=== PATIENT | male | born 1945 | race Caucasian/White ===

== ENCOUNTER 2018-06-19 00:40 | Emergency (ER) | payer MEDICARE ==
--- NOTE | 2018-06-19 00:58 | ER Document Report ---
ED Medical Screen (RME) - General Chief Complaint: High Blood Pressure Stated Complaint: BLOOD PRESSURE PROBLEM Time Seen by Provider: 06/19/18 00:55 Mode of Arrival: Ambulatory Information source: Patient Notes: 72-year-old male presented to ED for concern of high blood pressure. He states he was seen at home by EMS and they did his blood pressure and vital signs and his EKG. He refused to have his vital signs were an EKG done in the emergency room he stated he did not want a big bill when he just had all that done. He states that [facility] is a good hospital but he does not want a big bill for his elevated blood pressure. He states he feels fine just a little wobbly. I discussed with him at length that it was really bad in his best interest for me to examine him and get his vital signs. After repeated discussions concerning his symptoms and need to be examined the patient continued to refuse to be examined he stated he will follow-up with his doctor tomorrow. He states he did not want vital signs he did not want his height and weight he did not 1 EKG and he did not want lab work. Patient refused to let me examine him. TRAVEL OUTSIDE OF THE [place] IN LAST 30 DAYS: No - Related Data Allergies/Adverse Reactions: peanut Allergy (Verified 06/19/18 00:47) Past Medical History - General Cannot obtain history due to: Other - Patient refused to answer questions concerning his history. He states he has high blood pressure he is been seen in this hospital and saved in the past but he did not want to be examined tonight Doctor's Discharge - Discharge Clinical Impression: High blood pressure Qualifiers: Hypertension type: unspecified Qualified Code(s): I10 - Essential (primary) hypertension Disposition: AGAINST MEDICAL ADVICE Referrals: NAJMA COLE MD [Primary Care Provider] - Follow up as needed
== END 2018-06-19 00:55 | disposition left against medical advice (07) ==
LOC: ER 00:40
DX: I10 Essential (primary) hypertension (principal); Z53.29 Procedure and treatment not carried out because of patient's decision for other reasons; Z53.21 Procedure and treatment not carried out due to patient leaving prior to being seen by health care provider
CPT/HCPCS: 99281

== ENCOUNTER 2018-09-19 06:34 | Emergency (ER) | payer MEDICARE, OTHER ==
[2018-09-19] MEDS ORDERED: ONDANSETRON HCL INJ/PF 4 MG/2 ML SDV IV ONE (06:54)
[2018-09-19] MEDS ORDERED: MORPHINE SULFATE 10 MG/ML INJ IV ONE (06:54)
--- NOTE | 2018-09-19 06:55 | ER Document Report ---
ED General - General Chief Complaint: Flank Pain Stated Complaint: FLANK PAIN Time Seen by Provider: 09/19/18 06:40 Mode of Arrival: Ambulatory Information source: Patient, Relative, [facility] Records Notes: 72-year-old male with hypertension presents with complaint of left flank pain and periumbilical abdominal pain. Patient states that left flank pain started 2 weeks prior to arrival with worsening of pain over the last 2 days. He describes it as sharp, intermittent and relieved with remaining still and worsened with movement. Patient also has developed some centralized abdominal pain that he describes as "nagging". Patient has had associated nausea without vomiting. He denies any fever, chills, chest pain, shortness of breath, diarrhea, constipation, dysuria, hematuria diaphoresis, lightheadedness, recent injury. Patient does state that he lifts weights to stay in shape and has had pain with bending forward.. Patient denies prior history of kidney stone. He does have a surgical history of appendectomy. Patient denies any sick contacts, TRAVEL OUTSIDE OF THE [place] IN LAST 30 DAYS: No - HPI Onset: Other Onset/Duration: Intermittent Quality of pain: Stabbing Severity: Severe Pain Level: 5 Associated symptoms: Nausea. denies: Chest pain, Productive cough, Diarrhea, Earache, Fever, Headache, Vomiting, Shortness of breath, Sweating Exacerbated by: Movement Relieved by: Remaining still Similar symptoms previously: Yes Recently seen / treated by doctor: No - Related Data Allergies/Adverse Reactions: peanut Allergy (Verified 06/19/18 00:47) Past Medical History - General Information source: Patient, Relative, [facility] Records - Social History Smoking Status: Former Smoker Frequency of alcohol use: None Drug Abuse: None Lives with: Spouse/Significant other Family History: Reviewed & Not Pertinent Patient has suicidal ideation: No Patient has homicidal ideation: No - Past Medical History Cardiac Medical History: Reports: Hx Hypertension Past Surgical History: Reports: Hx Appendectomy Review of Systems - Review of Systems Notes: REVIEW OF SYSTEMS: CONSTITUTIONAL : Denies fever, chills, or sweats. Denies recent illness. Denies weight loss, recent hospitalizations. EENT: Denies visual changes, eye pain. Denies sore throat, oral lesions, dif ficulty swallowing. CARDIOVASCULAR: Denies chest pain. Denies palpitations. Denies lower extremity edema. RESPIRATORY: Denies cough. Denies shortness of breath, wheezing. GASTROINTESTINAL: Denies abdominal distention. Denies vomiting, or diarrhea. Denies blood in vomitus, stools, or per rectum. Denies black, tarry stools. Denies constipation. GENITOURINARY: Denies difficulty urinating, painful urination, frequency, blood in urine, testicular pain or penile discharge. MUSCULOSKELETAL: Denies neck pain or stiffness. Denies joint pain or swelling. SKIN: Denies rash, lesions or sores. HEMATOLOGIC : Denies easy bruising or bleeding. LYMPHATIC: Denies swollen glands. NEUROLOGICAL: Denies confusion or altered mental status. Denies loss of consciousness. Denies dizziness or lightheadedness. Denies headache. Denies weakness or paralysis. Denies problems difficulty with ambulation, slurred speech. Denies sensory loss, numbness, or tingling. Denies seizures. PSYCHIATRIC: Denies anxiety or stress. Denies depression, suicidal ideation, or PHYSICAL EXAMINATION: GENERAL: Well-appearing, well-nourished and in no acute distress. HEAD: Atraumatic, normocephalic. EYES: Pupils equal round and reactive to light, extraocular movements intact, sclera anicteric, conjunctiva are normal. ENT: Nares patent, oropharynx clear without exudates. Moist mucous membranes. NECK: Normal range of motion, supple without lymphadenopathy LUNGS: Breath sounds clear to auscultation bilaterally and equal. No wheezes rales or rhonchi. HEART: Regular rate and rhythm without murmurs ABDOMEN: Periumbilical abdominal tenderness no guarding, no rebound. No masses appreciated. No pulsatile mass. No CVA tenderness Musculoskeletal: Normal range of motion, no pitting or edema. No cyanosis. Left-sided paraspinal tenderness of the lumbar spine at the level of L4, L5. NEUROLOGICAL: Cranial nerves grossly intact. Normal speech, normal gait. Normal sensory, motor exams PSYCH: Normal mood, normal affect. SKIN: Warm, Dry, normal turgor, no rashes or lesions noted. Physical Exam - Vital signs Vitals: Pulse Resp BP Pulse Ox 56 L 16 174/68 H 99 09/19/18 06:34 09/19/18 06:34 09/19/18 06:34 09/19/18 06:34 Interpretation: Hypertensive. No: Hypoxic, Febrile Course - Re-evaluation Re-evalutation: Temp Pulse Resp BP Pulse Ox 56 L 16 174/68 H 99 09/19/18 06:34 09/19/18 06:34 09/19/18 06:34 09/19/18 06:34 Laboratory 09/19/18 09/19/18 09/19/18 07:04 07:04 07:04 WBC 8.3 RBC 4.94 Hgb 15.3 Hct 44.5 MCV 90 MCH 31.1 MCHC 34.5 RDW 13.4 Plt Count 305 Seg Neutrophils % 55.5 Lymphocytes % 29.9 Monocytes % 9.6 Eosinophils % 4.5 Basophils % 0.5 Absolute Neutrophils 4.6 Absolute Lymphocytes 2.5 Absolute Monocytes 0.8 Absolute Eosinophils 0.4 Absolute Basophils 0.0 Sodium 139.5 Potassium 4.4 Chloride 101 Carbon Dioxide 28 Anion Gap 11 BUN 19 Creatinine 0.98 Est GFR ( Amer) > 60 Est GFR (Non-Af Amer) > 60 Glucose 96 Calcium 10.2 Total Bilirubin 0.5 Direct Bilirubin 0.1 Neonat Total Bilirubin Not Reportable Neonat Direct Bilirubin Not Reportable Neonat Indirect Bili Not Reportable AST 21 ALT 26 Alkaline Phosphatase 64 Troponin I < 0.012 Total Protein 8.3 H Albumin 5.1 H Lipase 41.9 Urine Color Urine Appearance Urine pH Ur Specific [place] Urine Protein Urine Glucose (UA) Urine Ketones Urine Blood Urine Nitrite Urine Bilirubin Urine Urobilinogen Ur Leukocyte Esterase Urine WBC (Auto) Urine RBC (Auto) Urine Mucus (Auto) Urine Ascorbic Acid 09/19/18 07:50 WBC RBC Hgb Hct MCV MCH MCHC RDW Plt Count Seg Neutrophils % Lymphocytes % Monocytes % Eosinophils % Basophils % Absolute Neutrophils Absolute Lymphocytes Absolute Monocytes Absolute Eosinophils Absolute Basophils Sodium Potassium Chloride Carbon Dioxide Anion Gap BUN Creatinine Est GFR ( Amer) Est GFR (Non-Af Amer) Glucose Calcium Total Bilirubin Direct Bilirubin Neonat Total Bilirubin Neonat Direct Bilirubin Neonat Indirect Bili AST ALT Alkaline Phosphatase Troponin I Total Protein Albumin Lipase Urine Color STRAW Urine Appearance CLEAR Urine pH 7.0 Ur Specific [place] 1.006 Urine Protein NEGATIVE Urine Glucose (UA) NEGATIVE Urine Ketones NEGATIVE Urine Blood NEGATIVE Urine Nitrite NEGATIVE Urine Bilirubin NEGATIVE Urine Urobilinogen NEGATIVE Ur Leukocyte Esterase NEGATIVE Urine WBC (Auto) 1 Urine RBC (Auto) 0 Urine Mucus (Auto) RARE Urine Ascorbic Acid NEGATIVE Abdomen/Pelvis CTA 09/19/18 00:00 IMPRESSION: 1. Negative examination for abdominal aortic aneurysm, dissection, or other vascular pathology. 2. There is mild fat stranding in the vicinity of the pylorus and duodenum, of uncertain etiology. Nonspecific infectious or inflammatory enteritis may have this appearance as well as groove pancreatitis. The pancreatic parenchyma is normal in appearance. Chest X-Ray 09/19/18 06:52 IMPRESSION: No acute cardiopulmonary findings. 09/19/18 07:16 72-year-old male presents with left-sided flank and abdominal pain. Patient states flank pain started 2 weeks ago with worsening of pain over the last 2 days. Abdominal pain also started 2 days ago. Patient has had associated nausea without vomiting. Does have a medical history of hypertension for which she is on medication for. Upon arrival vitals were reviewed and patient is hypertensive, minimally bradycardic at a rate of 56, afebrile. Patient does not appear toxic or dehydrated. He is in no acute distress. Patient's physical exam significant for some periumbilical abdominal pain and left paraspinal tenderness of the lumbar spine. No midline tenderness. No CVA tenderness. Bedside ultrasound was performed and showed a normal size aorta and no evidence of left-sided hydronephrosis. 09/19/18 08:29 Patient declining pain medication at this time. CBC is without leukocytosis or anemia. CMP unremarkable, urinalysis without evidence of blood or infection. Troponin within normal limits. EKG obtained showed normal sinus rhythm at a rate of 67 with a QRS of 96 and a QTC of 414. 09/19/18 09:19 Patient reevaluated and is resting comfortably. Still complaining of low back pain but still declining pain medication. CT of the abdomen and pelvis significant for fat stranding around the duodenum consistent with inflammatory versus infectious enteritis. Patient declining antibiotics at this time. We have agreed that I will write him for antibiotics, printout his CT report and he will be reevaluated by his primary care physician and 48 hours. 09/19/18 14:14 Prior to discharge patient is walking without discomfort. He even throws his leg up onto the nursing counter to show his flexibility. CT is without evidence of aneurysm, dissection or any other vascular pathology. Patient was discharged home with copies of his imaging and lab work. Patient was evaluated and treated as appropriate for the patient's presenting symptoms and complaint, with consideration of any critical or life threatening conditions that may be associated with their obtained history and exam as noted above. All results were discussed with patient and his . Patient provided the opportunity to ask questions, and express concerns. Patient was educated on treatments based on their presumed diagnosis as noted above. At this time we will discharge the patient with return precautions and follow-up recommendations. Verbal discharge instructions given a the bedside. Medication warnings reviewed. Patient is in agreement with this plan and has verbalized understanding of return precautions. After careful consideration I feel that that patient can be safely discharged from the emergency department, they were advised to followup with a primary care physician in 2-3 days. Dictation on this chart was performed using voice recognition software and may result in unintended grammatical, spelling, syntax or errors. - Vital Signs Vital signs: Temp Pulse Resp BP Pulse Ox 97.8 F 64 19 140/73 H 99 09/19/18 09:34 09/19/18 09:34 09/19/18 09:34 09/19/18 09:34 09/19/18 09:34 - Laboratory Result Diagrams: 09/19/18 07:04 09/19/18 07:04 Laboratory results interpreted by me: 09/19/18 07:04 Total Protein 8.3 H Albumin 5.1 H - Diagnostic Test Radiology reviewed: Pending, Image reviewed, Reports reviewed - EKG Interpretation by Me EKG shows normal: Sinus rhythm Rate: Normal Rhythm: NSR When compared to previous EKG there are: Previous EKG unavailable - QRS 96, QTc 414 Procedures - Ultrasound/Bedside Ultrasound/Bedside Time completed: 07:16 - Bedside ultrasound of the aorta and kidneys were performed. No evidence of AAA with the greatest measurement 1.83. No evidence of left-sided hydronephrosis. Images attached to chart. Ultrasound: Normal Discharge - Discharge Clinical Impression: Enteritis Low back pain Qualifiers: Chronicity: acute Back pain laterality: left Sciatica presence: without sciatica Qualified Code(s): M54.5 - Low back pain Hypertension Qualifiers: Hypertension type: unspecified Qualified Code(s): I10 - Essential (primary) hypertension Abdominal pain Qualifiers: Abdominal location: periumbilical Qualified Code(s): R10.33 - Periumbilical p ain Condition: Good Disposition: HOME, SELF-CARE Instructions: Abdominal Pain ([facility]), Antinausea Medication ([facility]), Low Back Pain ([facility]), Toradol Injection ([facility]) Additional Instructions: Your CAT scan today showed evidence of inflammation of your bowel. This could be infectious versus inflammatory. Please take your CAT scan report to your primary care physician. Follow up with your [id number] hours for further care or return to the ED IMMEDIATELY if symptoms worsen or you have any concerns. If you cannot afford to follow up with your primary care physician a list of low cost clinics have been provided at the end of your discharge papers as well. Most prescribed medications have multiple side effects. The safest thing to do is when filling your prescription speak to your pharmacist regarding possible interactions with your normal home medications and over the counter medications such as Ibuprofen, Tylenol, Benadryl. If you experience any symptoms that cause you discomfort or concern you should discontinue the medication immediately and return to the emergency room or call your primary care physician. Prescriptions: Metronidazole [Flagyl 500 mg Tablet] 500 mg PO Q6H #28 tablet Ondansetron [Zofran Odt 4 mg Tablet] 1 tab PO Q4H PRN #15 tab.rapdis PRN Reason: For Nausea/Vomiting Forms: Elevated Blood Pressure Referrals: NAJMA COLE MD [ACTIVE STAFF] - Follow up as needed
[2018-09-19 07:26] LABS: ABSOLUTE EOSINOPHILS # (AUTO) 0.4 10^3/uL (0.0-0.6); ABSOLUTE LYMPHOCYTES (AUTO) 2.5 10^3/uL (0.5-4.7); ABSOLUTE MONOCYTES (AUTO) 0.8 10^3/uL (0.1-1.4); ABSOLUTE NEUT (AUTO) 4.6 10^3/uL (1.7-8.2); BASOPHILS % (AUTO) 0.5 % (0-2); EOSINOPHILS % (AUTO) 4.5 % (0-6); HEMATOCRIT 44.5 % (37.9-51.0); HEMOGLOBIN 15.3 g/dL (13.5-17.0); LYMPHOCYTES % (AUTO) 29.9 % (13-45); MEAN CORPUSCULAR HEMOGLOBIN 31.1 pg (27.0-33.4); MEAN CORPUSCULAR HGB CONC 34.5 g/dL (32.0-36.0); MEAN CORPUSCULAR VOLUME 90 fl (80-97); MONOCYTES % (AUTO) 9.6 % (3-13); PLATELET COUNT 305 10^3/uL (150-450); RED BLOOD COUNT 4.94 10^6/uL (4.35-5.55); RED CELL DISTRIBUTION WIDTH 13.4 % (11.5-14.0); SEGMENTED NEUTROPHILS % (AUTO) 55.5 % (42-78); TOTAL CELLS COUNTED % (AUTO) 100 %; WHITE BLOOD COUNT 8.3 10^3/uL (4.0-10.5)
--- NOTE | 2018-09-19 07:35 | RADIOLOGY REPORT (SQ) ---
EXAM DESCRIPTION: XR CHEST 2 VIEWS COMPLETED DATE/TME: 09/19/2018 06:52 CLINICAL HISTORY: 72 years Male, pain COMPARISON: None. NUMBER OF VIEWS/TECHNIQUE: 2, Frontal, Lateral FINDINGS: Adequate lung volume, clear parenchyma, normal cardiac silhouette, and intact bony thorax. IMPRESSION: No acute cardiopulmonary findings.
[2018-09-19 07:46] LABS: ALANINE AMINOTRANSFERASE 26 U/L (21-72); ALBUMIN 5.1 g/dL (3.5-5.0); ALKALINE PHOSPHATASE 64 U/L (38-126); ANION GAP 11 (5-19); ASPARTATE AMINO TRANSFERASE 21 U/L (17-59); BILIRUBIN,DIRECT 0.1 mg/dL (0.0-0.4); BILIRUBIN,TOTAL 0.5 mg/dL (0.2-1.3); BLOOD UREA NITROGEN 19 mg/dL (7-20); CALCIUM 10.2 mg/dL (8.4-10.2); CARBON DIOXIDE 28 mmol/L (22-30); CHLORIDE 101 mmol/L (98-107); GLUCOSE 96 mg/dL (75-110); LIPASE 41.9 U/L (23-300); POTASSIUM 4.4 mmol/L (3.6-5.0); SODIUM 139.5 mmol/L (137-145); TOTAL PROTEIN 8.3 g/dL (6.3-8.2)
[2018-09-19 08:01] LABS: APPEARANCE,URINE CLEAR; BILIRUBIN,URINE NEGATIVE (NEGATIVE); COLOR,URINE STRAW; GLUCOSE, URINE NEGATIVE (NEGATIVE); KETONES,URINE NEGATIVE (NEGATIVE); LEUKOCYTE ESTERASE,URINE NEGATIVE (NEGATIVE); NITRITE,URINE NEGATIVE (NEGATIVE); PROTEIN,URINE NEGATIVE (NEGATIVE); URINE SPECIFIC GRAVITY 1.006; UROBILINOGEN,URINE NEGATIVE mg/dL (<2.0)
--- NOTE | 2018-09-19 09:00 | RADIOLOGY REPORT (SQ) ---
EXAM DESCRIPTION: CTA ABDOMEN/PELVIS W WO COMPLETED DATE/TIME: 09/19/2018 8:44 am REASON FOR STUDY: flank /abd pain h/o htn COMPARISON: None. TECHNIQUE: CT scan of the abdominal aorta extending to the iliac bifurcation performed with and with out intravenous contrast using helical scanning technique with dynamic intravenous contrast injection . Images reviewed with lung, soft tissue, and bone windows. Reconstructed coronal and sagittal MPR im ages reviewed. All images stored on PACS. Advanced 3D imaging as volume rendering, MIPS, SSD performed? yes All CT scanners at this facility use dose modulation, iterative reconstruction, and/or weight based d osing when appropriate to reduce radiation dose to as low as reasonably achievable (ALARA). [facility]: Dose Right [facility]: CareDose [facility]: Dose Right [facility]: Teradose 4D [facility]: Access Closure CONTRAST TYPE AND DOSE: contrast/concentration: Isovue 350.00 mg/ml; Total Contrast Delivered: 70.0 ml; Total Saline Delivered: 60.0 ml RENAL FUNCTION: GFR > 60. RADIATION DOSE: 1287 mGy cm LIMITATIONS: None. FINDINGS: NON-CONTRASTED IMAGING: No significant renal or bladder calcifications. No other significa nt organ calcifications. POST-CONTRAST IMAGING: AORTA AND VESSELS: No aneurysm. No dissection. Renal arteries, SMA, celiac without stenosis. Minimal calcific atherosclerosis. LUNG BASES: No significant findings. No nodules or infiltrates. LIVER: Normal size. No masses or dilated ducts. SPLEEN: Normal size. No focal lesions. PANCREAS: No masses. No significant calcifications. No adjacent inflammation or peripancreatic fluid collections. Pancreatic duct not dilated. GALLBLADDER: No identified stones by CT criteria. No inflammatory changes to suggest cholecystitis. ADRENAL GLANDS: No significant masses or asymmetry. RIGHT KIDNEY AND URETER: No mass, calculi or urinary tract obstruction. LEFT KIDNEY AND URETER: No mass, calculi or urinary tract obstruction. RETROPERITONEUM: No retroperitoneal adenopathy, hemorrhage or masses. BOWEL AND PERITONEAL CAVITY: There is mild fat stranding in the vicinity of the pylorus and duodenum. No free fluid or peritoneal masses. APPENDIX: Surgically absent. ABDOMINAL WALL: No masses. No hernias. BONY STRUCTURES: No significant or acute findings. 3-D IMAGING: Confirms the above findings. OTHER: No other significant finding. IMPRESSION: 1. Negative examination for abdominal aortic aneurysm, dissection, or other vascular pa thology. 2. There is mild fat stranding in the vicinity of the pylorus and duodenum, of uncertain etiology. N onspecific infectious or inflammatory enteritis may have this appearance as well as groove pancreatit is. The pancreatic parenchyma is normal in appearance. TECHNICAL DOCUMENTATION: JOB ID: [id number] Quality ID # [id number]: Final reports with documentation of one or more dose reduction techniques (e.g., Au tomated exposure control, adjustment of the mA and/or kV according to patient size, use of iterative reconstruction technique) 2010 [employer]- All Rights Reserved Reading location - IP/workstation name: [email or web address]
[2018-09-19] MEDS ORDERED: KETOROLAC TROMETHAMINE INJ/PF 30 MG/1 ML SDV IV ONE (09:19)
[2018-09-19 09:41] VITALS: BP 140/73
--- NOTE | 2018-09-19 19:33 | EKG REPORT ---
SEVERITY:- NORMAL ECG - SINUS RHYTHM : Confirmed by: Herman Jennings 19-Sep-2018 19:32:41
== END 2018-09-19 09:34 | disposition home or self-care (01) ==
LOC: ER 06:34
DX: K52.9 Noninfective gastroenteritis and colitis, unspecified (principal); R10.33 Periumbilical pain; M54.5 Low back pain; R11.0 Nausea; R00.1 Bradycardia, unspecified; I10 Essential (primary) hypertension; Z79.899 Other long term (current) drug therapy; Z90.49 Acquired absence of other specified parts of digestive tract; Z91.010 Allergy to peanuts; Z87.891 Personal history of nicotine dependence
CPT/HCPCS: 36415; 71046; 74174; 80053; 81001; 83690; 84484; 85025; 93005; 93010; 99284

== ENCOUNTER 2019-03-21 11:36 | Day surgery (SDC) | payer MEDICARE, OTHER ==
[~2019-03-21 11:36] MED LIST: KETOROLAC TROMETHAMINE 0.45% 4 DROP/0.4 ML DROPERETTE OS PRN
[2019-03-21] MEDS: CYCLOPENTOLATE 0.2%/PHENYLEPHRINE 1% OPH SOLN 2 ML OS PRN ×3 (12:08→12:28)
[2019-03-21] MEDS: BESIFLOXACIN HCL 0.6% OPH SUSP 5 ML BOTTLE OS PRN ×4 (12:08→12:59)
[2019-03-21] MEDS: TROPICAMIDE 1% OPH SOLN 3 ML OS PRN ×3 (12:08→12:28)
[2019-03-21] MEDS: TETRACAINE HCL 0.5% OPH SOLN 0.6 ML DROPERETTE OS PRN ×4 (12:09→12:39)
[2019-03-21] MEDS ORDERED: MIDAZOLAM 2 MG/2 ML INJ ONE (12:22)
[2019-03-21] MEDS: EPINEPHRINE INJ/PF 1 MG/1 ML AMPULE ONE ×2 (12:51)
[2019-03-21] MEDS: LIDOCAINE 1% INJ-PF (10 MG/ML) 30 ML SDV ONE ×2 (12:51)
[2019-03-21] MEDS: CHONDR SU A NA/HYALUR INTRAOC KIT (SURGICARE) ONE ×2 (12:51)
[2019-03-21] MEDS: TOBRAMYCIN SULFATE/DEXAMETH OPH OINTMENT 3.5 GM ONE ×2 (12:59)
[2019-03-21] MEDS: DORZOLAMIDE HCL 2%/TIMOLOL MALEAT 0.5% OPH SOLN 10 ML OS PRN ×2 (12:59)
== END 2019-03-21 13:46 | disposition home or self-care (01) ==
LOC: SC 11:36
PROVIDERS: ATTEND Ophthalmology
DX: H25.12 Age-related nuclear cataract, left eye (principal); I10 Essential (primary) hypertension; K21.9 Gastro-esophageal reflux disease without esophagitis; Z79.899 Other long term (current) drug therapy
CPT/HCPCS: 66984; 00142; V2632; J2250; J3490 ×3; A9270; J0171; 142

== ENCOUNTER 2020-05-14 06:52 | Day surgery (SDC) | payer MEDICARE, OTHER ==
[~2020-05-14 06:52] MED LIST changes: +KETOROLAC TROMETHAMINE 0.45% 4 DROP/0.4 ML DROPERETTE OD PRN; -KETOROLAC TROMETHAMINE 0.45% 4 DROP/0.4 ML DROPERETTE OS PRN
[2020-05-14] MEDS ORDERED: FENTANYL CITRATE INJ/PF 100 MCG/2 ML AMPUL ONE (06:55)
[2020-05-14] MEDS ORDERED: ONDANSETRON HCL INJ/PF 4 MG/2 ML SDV ONE (06:55)
[2020-05-14] MEDS ORDERED: MIDAZOLAM 2 MG/2 ML INJ ONE (06:55)
[2020-05-14] MEDS: BESIFLOXACIN HCL 0.6% OPH SUSP 5 ML BOTTLE OD PRN ×4 (07:10→08:08)
[2020-05-14] MEDS: CYCLOPENTOLATE 0.2%/PHENYLEPHRINE 1% OPH SOLN 2 ML OD PRN ×3 (07:10→07:30)
[2020-05-14] MEDS: TROPICAMIDE 1% OPH SOLN 15 ML OD PRN ×3 (07:10→07:30)
[2020-05-14] MEDS: TETRACAINE HCL 0.5% OPH SOLN 4 ML OD PRN ×4 (07:11→07:49)
[2020-05-14] MEDS: EPINEPHRINE INJ/PF 1 MG/1 ML AMPULE ONE ×2 (07:58)
[2020-05-14] MEDS: LIDOCAINE 1%/PHENYLEPHRINE 1.5% 0.8 ML SYRINGE ONE ×2 (07:58)
[2020-05-14] MEDS: CHONDR SU A NA/HYALUR INTRAOC KIT (SURGICARE) ONE ×2 (07:58)
[2020-05-14] MEDS: PREDNISOLONE ACETATE 1% OPH SUSP 5 ML OD PRN ×2 (08:08)
[2020-05-14] MEDS: DORZOLAMIDE HCL 2%/TIMOLOL MALEAT 0.5% OPH SOLN 10 ML OD PRN ×2 (08:08)
--- NOTE | 2020-05-14 10:00 | Operative Report ---
Operative Report-[facility] Operative Report: DATE OF SURGERY: May 14, 2020 PREOPERATIVE DIAGNOSIS: NUCLEAR CATARACT, RIGHT EYE. POSTOPERATIVE DIAGNOSIS: NUCLEAR CATARACT, RIGHT EYE. PROCEDURE PERFORMED: PHACOEMULSIFICATION WITH POSTERIOR CHAMBER INTRAOCULAR LENS IMPLANT, RIGHT EYE. SURGEON: Delfin Soto DO MEDICATIONS AND ANESTHESIA: Versed: IV Versed Tetracaine drops: 1 to 2 drops given as needed COMPLICATION: None INDICATIONS FOR SURGERY: Medical necessity: Best corrected visual acuity worse than 20/40 secondary to cataracts with impairment of ability to carry out needs or desired activities, blurred vision, visual distortion, reduced contrast sensitivity and/or glare with association functional impairment and supporting documentation/testing, and cataracts causing symptomatic impairment of visual functions not corrected with tolerable changes in glasses or contact lenses interfering with activities of daily life. PROCEDURE: Consent: The risks, benefits and alternatives of this procedures was discussed with the patient. The patient read and signed the consent forms, was identified and was seated in the exam chair. IOL: MX 60 E 22.0 IOL Diopters: Phacoemulsification with posterior chamber intraocular lens implant: The face was prepped with 5% povidone iodine solution, and a few drops of 5% povidone iodine solution was instilled into the inferior fornix. A non-fenestrated drape was placed over the eye and the lids were parted with the speculum. A paracentesis was made with a 15 degree blade, and 1% lidocaine MPF followed by viscoelastic was injected into the anterior chamber. A 2.4 mm metal micro- keratome was used to create a temporal clear corneal incision. A circular anterior capsulorrhexis was created, followed by hydro-dissection and hydro- delineation. The phacoemulsification hand piece was inserted and the nucleus was removed with the Phaco chop technique. The irrigation-aspiration hand piece was used to remove the residual cortex, and vacuum the posterior capsule. The capsular bag was inflated and viscoelastic and the above-mentioned IOL was injected into the eye with care to insert both leaning and trailing haptics in the capsular bag. The irrigation/aspiration hand piece was reinserted to remove residual viscoelastic from the capsular bag and anterior chamber. The corneal incision was hydrated, and anterior chamber was inflated with sterile BSS via the paracentesis site, and found to be watertight. Postop medication: 1 drop of prednisolone into operative by followed by 1 drop of Cosopt into operative eye followed by 1 drop of Besivance intraoperative by other:
== END 2020-05-14 08:50 | disposition home or self-care (01) ==
LOC: SC 06:52
PROVIDERS: ATTEND Ophthalmology
DX: H25.11 Age-related nuclear cataract, right eye (principal); I10 Essential (primary) hypertension; K21.9 Gastro-esophageal reflux disease without esophagitis; Z83.511 Family history of glaucoma; Z80.9 Family history of malignant neoplasm, unspecified; Z79.899 Other long term (current) drug therapy
CPT/HCPCS: 66984; 00142; V2632; J2250; J3490 ×3; A9270; J0171; J3010; J2405; 142